=== PATIENT | male | born 1945 | race African-American/Black ===

== ENCOUNTER → 2016-06-28 | Outpatient (CLI) | payer MEDICARE, BC ==
[2016-06-28 07:40] LABS: Basophils # (A) 0.1 k/uL (0-0.2); Basophils % (A) 1 %; CH 28.6; CHCM 33.6; Eosinophils # (A) 0.3 k/uL (0-0.7); Eosinophils % (A) 4 %; HCT 43.4 % (39.0-53.0); HDW 2.86; HGB 14.4 gm/dL (13.0-17.5); Luc # (Auto) 0.18; Luc % (Auto) 2; Lymphocytes # (A) 1.8 k/uL (1.0-4.8); Lymphocytes % (A) 22 %; MCH 28.3 pg (25.0-35.0); MCHC 33.1 g/dL (31.0-37.0); MCV 85.4 fL (80.0-100.0); Mean Platelet Volume 9.5; Monocytes # (A) 0.6 k/uL (0-1.0); Monocytes % (A) 7 %; Neutrophils # (A) 5.5 k/uL (1.3-7.7); Neutrophils % (A) 65 %; RBC 5.08 m/uL (4.30-5.90); RDW 15.1 % (11.5-15.5); WBC 8.4 k/uL (3.8-10.6); WBC (Perox) 8.72
[2016-06-28 10:53] LABS: Calcium 9.7 mg/dL (8.4-10.2); Magnesium 1.5 mg/dL (1.6-2.3); Potassium 4.1 mmol/L (3.5-5.1); Uric Acid 5.5 mg/dL (3.5-8.5)
[2016-06-28 11:03] LABS: % Iron Saturation 26.2 % (20-50)
== END | disposition home or self-care (01) ==
LOC: LABWHC1 07:10
PROVIDERS: ATTEND Nurse Practitioner Family
DX: N18.3 Chronic kidney disease, stage 3 (moderate) (principal); E11.22 Type 2 diabetes mellitus with diabetic chronic kidney disease; E83.10 Disorder of iron metabolism, unspecified; E21.3 Hyperparathyroidism, unspecified; E50.9 Vitamin A deficiency, unspecified; M10.9 Gout, unspecified; E83.42 Hypomagnesemia
CPT/HCPCS: 36415; 80048; 82043; 82306; 82728; 83540; 83550; 83735; 83970; 84100; 84550; 85025

== ENCOUNTER → 2016-09-27 | Outpatient (CLI) | payer MEDICARE, BC ==
--- NOTE | 2016-09-27 07:43 | XR ---
EXAMINATION TYPE: XR chest 2V DATE OF EXAM: 09/27/2016 7:12 AM HISTORY: I11.9 hypertensive heart disease. REFERENCE: Previous study dated 01/19/2016. FINDINGS: Lungs are clear. Pleural spaces are clear. The heart is not enlarged. IMPRESSION: NO ACUTE INTRATHORACIC ABNORMALITY.
[2016-09-27 08:05] LABS: CHCM 32.8; HCT 46.8 % (39.0-53.0); HDW 2.91; HGB 15.3 gm/dL (13.0-17.5); MCH 27.9 pg (25.0-35.0); MCHC 32.6 g/dL (31.0-37.0); MCV 85.6 fL (80.0-100.0); Mean Platelet Volume 8.8; RBC 5.47 m/uL (4.30-5.90); RDW 15.5 % (11.5-15.5); WBC 8.6 k/uL (3.8-10.6)
[2016-09-27 08:24] LABS: Calcium 10.3 mg/dL (8.4-10.2); Potassium 4.5 mmol/L (3.5-5.1); Total Bilirubin 0.8 mg/dL (0.2-1.3); Total Protein 7.7 g/dL (6.3-8.2)
== END | disposition home or self-care (01) ==
LOC: LABWHC1 06:53
PROVIDERS: ATTEND Internal Medicine Endocrinology, Diabetes & Metabolism
DX: I11.9 Hypertensive heart disease without heart failure (principal); E11.65 Type 2 diabetes mellitus with hyperglycemia
CPT/HCPCS: 36415; 71020; 80053; 80061; 82043; 83036; 84443; 85027

== ENCOUNTER → 2017-01-22 | Outpatient (CLI) | payer MEDICARE, BC ==
[2017-01-22 08:08] LABS: Anisocytosis Slight; Basophils % (A) 1 %; CH 28.5; CHCM 33.5; Calcium 9.7 mg/dL (8.4-10.2); Eosinophils # (A) 0.4 k/uL (0-0.7); Eosinophils % (A) 4 %; HCT 43.2 % (39.0-53.0); HDW 2.93; HGB 14.3 gm/dL (13.0-17.5); Luc # (Auto) 0.19; Luc % (Auto) 2; Lymphocytes # (A) 1.8 k/uL (1.0-4.8); Lymphocytes % (A) 21 %; MCH 28.4 pg (25.0-35.0); MCHC 33.2 g/dL (31.0-37.0); MCV 85.5 fL (80.0-100.0); Magnesium 1.7 mg/dL (1.6-2.3); Mean Platelet Volume 8.9; Monocytes # (A) 0.6 k/uL (0-1.0); Monocytes % (A) 7 %; Neutrophils # (A) 5.8 k/uL (1.3-7.7); Neutrophils % (A) 66 %; Phosphorous 3.8 mg/dL (2.5-4.5); Potassium 4.3 mmol/L (3.5-5.1); RBC 5.05 m/uL (4.30-5.90); Uric Acid 5.2 mg/dL (3.5-8.5); WBC 8.8 k/uL (3.8-10.6); WBC (Perox) 8.73
[2017-01-22 17:08] LABS: Iron Saturation 33.46 (15.00-50.00)
[2017-01-22 18:25] LABS: Urine Creatinine 326.8 mg/dL
== END ==
LOC: LABWHC1 07:17
PROVIDERS: ATTEND Nurse Practitioner Family
DX: E11.22 Type 2 diabetes mellitus with diabetic chronic kidney disease (principal); N18.3 Chronic kidney disease, stage 3 (moderate); M10.9 Gout, unspecified; E83.10 Disorder of iron metabolism, unspecified; E83.42 Hypomagnesemia; E21.3 Hyperparathyroidism, unspecified; E55.9 Vitamin D deficiency, unspecified
CPT/HCPCS: 36415; 80048; 82043; 82306; 82570; 82728; 83540; 83550; 83735; 83970; 84100; 84550; 85025

== ENCOUNTER → 2017-06-09 | Outpatient (CLI) | payer MEDICARE, BC ==
[2017-06-09 09:40] LABS: Appearance,Urine Clear (Clear); Bilirubin,Urine Negative (Negative); Blood,Urine Negative (Negative); Color,Urine Yellow; Glucose,Urine (UA) Negative (Negative); Ketones,Urine Negative (Negative); Leukocyte Esterase,Urine Negative (Negative); Nitrite,Urine Negative (Negative); PH, Urine 5.5 (5.0-8.0); Protein,Urine Trace (Negative); Specific Gravity,Urine 1.014 (1.001-1.035); Urobilinogen,Urine <2.0 mg/dL (<2.0)
[2017-06-09 09:56] LABS: Magnesium 1.8 mg/dL (1.6-2.3); Phosphorus 4.2 mg/dL (2.5-4.5); Potassium 4.2 mmol/L (3.5-5.1); Uric Acid 5.3 mg/dL (3.5-8.5)
[2017-06-09 10:00] LABS: Basophils # (A) 0.1 k/uL (0-0.2); Basophils % (A) 1 %; Eosinophils # (A) 0.3 k/uL (0-0.7); Eosinophils % (A) 4 %; HCT 46.1 % (39.0-53.0); HGB 14.8 gm/dL (13.0-17.5); Lymphocytes % (A) 25 %; MCH 27.2 pg (25.0-35.0); MCHC 32.1 g/dL (31.0-37.0); MCV 84.7 fL (80.0-100.0); Mean Platelet Volume 8.6; Monocytes # (A) 0.6 k/uL (0-1.0); Monocytes % (A) 7 %; Neutrophils # (A) 4.9 k/uL (1.3-7.7); Neutrophils % (A) 61 %; Platelet Count 174 k/uL (150-450); RBC 5.44 m/uL (4.30-5.90); RDW 15.3 % (11.5-15.5)
[2017-06-09 16:59] LABS: Iron Saturation 26.87 (15.00-50.00)
[2017-06-09 17:08] LABS: Vitamin D 25 Hydroxy 40.7 ng/mL (30.0-100.0)
[2017-06-09 18:00] LABS: Parathyroid Hormone Intact 98.4 pg/mL (14.0-72.0)
== END | disposition home or self-care (01) ==
LOC: LABWHC1 09:06
PROVIDERS: ATTEND Internal Medicine Nephrology
DX: E11.22 Type 2 diabetes mellitus with diabetic chronic kidney disease (principal); N18.3 Chronic kidney disease, stage 3 (moderate); E21.3 Hyperparathyroidism, unspecified; D64.9 Anemia, unspecified; E55.9 Vitamin D deficiency, unspecified; M10.9 Gout, unspecified; N39.0 Urinary tract infection, site not specified
CPT/HCPCS: 36415; 80048; 80061; 81003; 82306; 82728; 83540; 83550; 83735; 83970; 84100; 84550; 85025

== ENCOUNTER → 2017-10-29 | Outpatient (CLI) | payer MEDICARE, BC ==
[2017-10-29 08:47] LABS: Appearance,Urine Clear (Clear); Basophils % (A) 1 %; Bilirubin,Urine Negative (Negative); Blood,Urine Negative (Negative); Color,Urine Yellow; Eosinophils # (A) 0.3 k/uL (0-0.7); Eosinophils % (A) 4 %; Glucose,Urine (UA) Negative (Negative); HCT 43.5 % (39.0-53.0); HGB 14.2 gm/dL (13.0-17.5); Ketones,Urine Negative (Negative); Leukocyte Esterase,Urine Negative (Negative); Lymphocytes # (A) 1.7 k/uL (1.0-4.8); Lymphocytes % (A) 23 %; MCH 27.4 pg (25.0-35.0); MCHC 32.7 g/dL (31.0-37.0); Mean Platelet Volume 8.9; Monocytes # (A) 0.6 k/uL (0-1.0); Monocytes % (A) 8 %; Neutrophils # (A) 4.6 k/uL (1.3-7.7); Neutrophils % (A) 62 %; Nitrite,Urine Negative (Negative); Platelet Count 157 k/uL (150-450); Protein,Urine Negative (Negative); RBC 5.18 m/uL (4.30-5.90); RDW 15.8 % (11.5-15.5); Specific Gravity,Urine 1.013 (1.001-1.035); Urobilinogen,Urine <2.0 mg/dL (<2.0); WBC 7.4 k/uL (3.8-10.6)
[2017-10-29 09:09] LABS: Albumin 4.4 g/dL (3.5-5.0); Calcium 9.7 mg/dL (8.4-10.2); Magnesium 1.7 mg/dL (1.6-2.3); Phosphorus 3.7 mg/dL (2.5-4.5); Potassium 4.3 mmol/L (3.5-5.1); Total Bilirubin 0.6 mg/dL (0.2-1.3); Total Protein 7.1 g/dL (6.3-8.2)
[2017-10-29 09:23] LABS: T4, Free (Free Thyroxine) 0.87 ng/dL (0.78-2.19)
[2017-10-29 16:17] LABS: Iron Saturation 28.37 (15.00-50.00)
[2017-10-29 16:26] LABS: Parathyroid Hormone Intact 95.4 pg/mL (14.0-72.0); Vitamin D 25 Hydroxy 40.2 ng/mL (30.0-100.0)
[2017-10-29 18:23] LABS: Hemoglobin A1C 6.6 % (4.0-6.0)
== END | disposition home or self-care (01) ==
LOC: LABWHC1 08:04
PROVIDERS: ATTEND Nurse Practitioner Family
DX: Z00.01 Encounter for general adult medical examination with abnormal findings (principal); I11.9 Hypertensive heart disease without heart failure; E11.9 Type 2 diabetes mellitus without complications; E78.2 Mixed hyperlipidemia; D64.9 Anemia, unspecified; M10.9 Gout, unspecified; N39.0 Urinary tract infection, site not specified; N18.3 Chronic kidney disease, stage 3 (moderate); N25.81 Secondary hyperparathyroidism of renal origin
CPT/HCPCS: 36415; 80053; 80061; 81003; 82043; 82306; 82570; 82728; 83036; 83540; 83550; 83735; 83970; 84100; 84439; 84443; 84550; 85025

== ENCOUNTER → 2017-12-05 | Outpatient (CLI) | payer MEDICARE, BC ==
--- NOTE | 2017-12-05 09:20 | US ---
EXAMINATION TYPE: US kidneys/renal and bladder DATE OF EXAM: 12/05/2017 COMPARISON: NONE CLINICAL HISTORY: N18.3 Chronic kidney disease, stage 3 (moderate). CKD stage 3 EXAM MEASUREMENTS: Right Kidney: 9.1 x 5.9 x 4.7 cm Left Kidney: 10.6 x 6.1 x 5.0 cm Right Kidney: cortical thinning, no hydronephrosis or masses seen Left Kidney: cortical thinning, small 1.1cm exophytic simple appearing cyst medial mid pole Bladder: not fully distended, appears wnl as seen Bilateral Jets seen: yes There is no evidence for hydronephrosis at this point in time. Some cortical thinning is present bila terally. No suspicious solid or cystic masses are identified. The urinary bladder is not greatly di stended. Bilateral ureteral jets are seen. IMPRESSION: No hydronephrosis is evident bilaterally.
== END | disposition home or self-care (01) ==
LOC: RADUSWWP 08:36
PROVIDERS: ATTEND Internal Medicine Nephrology
DX: N18.3 Chronic kidney disease, stage 3 (moderate) (principal)
CPT/HCPCS: 76770

== ENCOUNTER → 2018-04-10 | Outpatient (CLI) | payer MEDICARE, BC ==
[2018-04-10 08:56] LABS: Basophils % (A) 0 %; Eosinophils # (A) 0.3 k/uL (0-0.7); Eosinophils % (A) 5 %; HCT 42.2 % (39.0-53.0); HGB 14.1 gm/dL (13.0-17.5); Lymphocytes # (A) 1.4 k/uL (1.0-4.8); Lymphocytes % (A) 20 %; MCH 28.1 pg (25.0-35.0); MCHC 33.3 g/dL (31.0-37.0); MCV 84.4 fL (80.0-100.0); Monocytes # (A) 0.5 k/uL (0-1.0); Monocytes % (A) 6 %; Neutrophils # (A) 4.8 k/uL (1.3-7.7); Neutrophils % (A) 67 %; Platelet Count 169 k/uL (150-450); RDW 15.7 % (11.5-15.5); WBC 7.1 k/uL (3.8-10.6)
[2018-04-10 08:59] LABS: Appearance,Urine Clear (Clear); Bilirubin,Urine Negative (Negative); Blood,Urine Negative (Negative); Color,Urine Yellow; Glucose,Urine (UA) Negative (Negative); Ketones,Urine Negative (Negative); Leukocyte Esterase,Urine Negative (Negative); Nitrite,Urine Negative (Negative); PH, Urine 5.5 (5.0-8.0); Protein,Urine Negative (Negative); Specific Gravity,Urine 1.012 (1.001-1.035); Urobilinogen,Urine <2.0 mg/dL (<2.0)
[2018-04-10 17:01] LABS: Anion Gap 8.6 mmol/L (4.00-12.00); Calcium 9.3 mg/dL (8.7-10.3); Carbon Dioxide 23.4 mmol/L (21.6-31.8); Potassium 4.3 mmol/L (3.5-5.5); Uric Acid 5.5 mg/dL (3.7-8.7)
[2018-04-10 18:50] LABS: Iron Saturation 21.99 (15.00-50.00)
== END ==
LOC: LABWHC1 08:13
PROVIDERS: ATTEND Nurse Practitioner Family
DX: N39.0 Urinary tract infection, site not specified (principal); M10.9 Gout, unspecified; D63.1 Anemia in chronic kidney disease; N18.3 Chronic kidney disease, stage 3 (moderate)
CPT/HCPCS: 36415; 80048; 81003; 82728; 83540; 83550; 83735; 84100; 84550; 85025

== ENCOUNTER → 2018-05-22 | Outpatient (CLI) | payer MEDICARE ==
[2018-05-22 18:24] LABS: Anion Gap 7.6 mmol/L (4.00-12.00); Calcium 9.1 mg/dL (8.7-10.3); Carbon Dioxide 27.4 mmol/L (21.6-31.8); Potassium 4.4 mmol/L (3.5-5.5)
== END | disposition home or self-care (01) ==
LOC: LABWHC1 09:52
PROVIDERS: ATTEND Internal Medicine Nephrology
DX: N18.3 Chronic kidney disease, stage 3 (moderate) (principal)
CPT/HCPCS: 36415; 80048

== ENCOUNTER → 2018-06-26 | Outpatient (CLI) | payer MEDICARE ==
[2018-06-26 13:46] LABS: Appearance,Urine Clear (Clear); Basophils % (A) 1 %; Bilirubin,Urine Negative (Negative); Blood,Urine Negative (Negative); Color,Urine Yellow; Eosinophils # (A) 0.3 k/uL (0-0.7); Eosinophils % (A) 5 %; Glucose,Urine (UA) Negative (Negative); HCT 42.5 % (39.0-53.0); HGB 13.7 gm/dL (13.0-17.5); Ketones,Urine Negative (Negative); Leukocyte Esterase,Urine Negative (Negative); Lymphocytes # (A) 1.5 k/uL (1.0-4.8); Lymphocytes % (A) 21 %; MCH 27.7 pg (25.0-35.0); MCHC 32.3 g/dL (31.0-37.0); MCV 85.7 fL (80.0-100.0); Mean Platelet Volume 8.6; Monocytes # (A) 0.5 k/uL (0-1.0); Monocytes % (A) 7 %; Neutrophils # (A) 4.6 k/uL (1.3-7.7); Neutrophils % (A) 66 %; Nitrite,Urine Negative (Negative); PH, Urine 5.5 (5.0-8.0); Platelet Count 167 k/uL (150-450); Protein,Urine Negative (Negative); RBC 4.96 m/uL (4.30-5.90); RDW 15.9 % (11.5-15.5); Specific Gravity,Urine 1.012 (1.001-1.035); Urobilinogen,Urine <2.0 mg/dL (<2.0); WBC 7.1 k/uL (3.8-10.6)
[2018-06-26 19:27] LABS: Iron Saturation 22.3 (15.00-50.00)
[2018-06-26 19:32] LABS: Albumin 4.5 g/dL (3.80-4.90); Anion Gap 4.8 mmol/L (4.00-12.00); Calcium 9.4 mg/dL (8.7-10.3); Carbon Dioxide 27.2 mmol/L (21.6-31.8); Magnesium 1.9 mg/dL (1.5-2.4); Phosphorus 3.7 mg/dL (2.4-5.1); Uric Acid 4.5 mg/dL (3.7-8.7)
[2018-06-26 19:35] LABS: Vitamin D 25 Hydroxy 48.4 ng/mL (30.0-100.0)
[2018-06-26 20:03] LABS: Parathyroid Hormone Intact 123.5 pg/mL (14.0-72.0)
[2018-06-26 20:30] LABS: Creatinine,Urine Random 149.7 mg/dL
[2018-06-26 21:06] LABS: Total Protein,Urine Random 11.6 mg/dL (0.0-13.5)
== END | disposition home or self-care (01) ==
LOC: LABWHC1 12:32
PROVIDERS: ATTEND Internal Medicine Nephrology
DX: N39.0 Urinary tract infection, site not specified (principal); M10.9 Gout, unspecified; N25.81 Secondary hyperparathyroidism of renal origin; N18.3 Chronic kidney disease, stage 3 (moderate); D63.1 Anemia in chronic kidney disease; R80.9 Proteinuria, unspecified
CPT/HCPCS: 36415; 80048; 81003; 82040; 82306; 82570; 82728; 83540; 83550; 83735; 83970; 84100; 84156; 84550; 85025

== ENCOUNTER → 2018-10-27 | Outpatient (CLI) | payer MEDICARE ==
[2018-10-27 09:27] LABS: Basophils % (A) 1 %; Eosinophils # (A) 0.5 k/uL (0-0.7); Eosinophils % (A) 6 %; HCT 44.2 % (39.0-53.0); HGB 14.3 gm/dL (13.0-17.5); Lymphocytes # (A) 1.4 k/uL (1.0-4.8); Lymphocytes % (A) 16 %; MCH 26.9 pg (25.0-35.0); MCHC 32.4 g/dL (31.0-37.0); MCV 83.2 fL (80.0-100.0); Mean Platelet Volume 9.4; Monocytes # (A) 0.6 k/uL (0-1.0); Monocytes % (A) 7 %; Neutrophils % (A) 69 %; Platelet Count 190 k/uL (150-450); RBC 5.31 m/uL (4.30-5.90); RDW 15.9 % (11.5-15.5); WBC 8.6 k/uL (3.8-10.6)
[2018-10-27 09:32] LABS: Appearance,Urine Clear (Clear); Bilirubin,Urine Negative (Negative); Blood,Urine Negative (Negative); Color,Urine Yellow; Glucose,Urine (UA) Negative (Negative); Ketones,Urine Negative (Negative); Leukocyte Esterase,Urine Negative (Negative); Nitrite,Urine Negative (Negative); PH, Urine 5.5 (5.0-8.0); Protein,Urine Negative (Negative); Specific Gravity,Urine 1.013 (1.001-1.035); Urobilinogen,Urine <2.0 mg/dL (<2.0)
[2018-10-27 16:31] LABS: Iron Saturation 27.31 (15.00-50.00)
[2018-10-27 16:39] LABS: Vitamin D 25 Hydroxy 48.9 ng/mL (30.0-100.0)
[2018-10-27 17:22] LABS: African American GFR (CKD) 27.5 (60.0-200.0); Albumin 4.3 g/dL (3.80-4.90); Albumin/Globulin Ratio 1.65 (1.60-3.17); Anion Gap 9.2 mmol/L (4.00-12.00); BUN/Creat Ratio 13.08 Ratio (12.00-20.00); Calcium 9.4 mg/dL (8.7-10.3); Carbon Dioxide 21.8 mmol/L (21.6-31.8); Globulin 2.6 g/dL (1.6-3.3); LDL Cholesterol,Calculated 79.6 mg/dL (0.0-131.0); Potassium 4.5 mmol/L (3.5-5.5); Total Bilirubin 0.5 mg/dL (0.3-1.2); Total Protein 6.9 g/dL (6.2-8.2); Uric Acid 4.4 mg/dL (3.7-8.7); VLDL Calculation 36.4 mg/dL (5.00-40.00)
[2018-10-27 18:42] LABS: Parathyroid Hormone Intact 107.2 pg/mL (14.0-72.0)
[2018-10-27 18:59] LABS: Total Protein,Urine Random 16.8 mg/dL (0.0-13.5)
== END | disposition home or self-care (01) ==
LOC: LABWHC1 08:28
PROVIDERS: ATTEND Internal Medicine
DX: N18.4 Chronic kidney disease, stage 4 (severe) (principal); N25.81 Secondary hyperparathyroidism of renal origin; M10.9 Gout, unspecified; N39.0 Urinary tract infection, site not specified; D63.1 Anemia in chronic kidney disease; R80.9 Proteinuria, unspecified; E11.65 Type 2 diabetes mellitus with hyperglycemia; N40.0 Benign prostatic hyperplasia without lower urinary tract symptoms; K21.0 Gastro-esophageal reflux disease with esophagitis
CPT/HCPCS: 36415; 80053; 80061; 81003; 82272; 82306; 82570; 82728; 83540; 83550; 83735; 83970; 84100; 84153; 84156; 84443; 84550; 85025

== ENCOUNTER → 2019-01-30 | Outpatient (CLI) | payer MEDICARE ==
[2019-01-30 10:39] LABS: Appearance,Urine Clear (Clear); Basophils # (A) 0.1 k/uL (0-0.2); Basophils % (A) 1 %; Bilirubin,Urine Negative (Negative); Blood,Urine Negative (Negative); Color,Urine Yellow; Eosinophils # (A) 0.4 k/uL (0-0.7); Eosinophils % (A) 5 %; Glucose,Urine (UA) Negative (Negative); HCT 42.3 % (39.0-53.0); HGB 13.8 gm/dL (13.0-17.5); Ketones,Urine Negative (Negative); Leukocyte Esterase,Urine Negative (Negative); Lymphocytes # (A) 1.2 k/uL (1.0-4.8); Lymphocytes % (A) 15 %; MCH 27.6 pg (25.0-35.0); MCHC 32.6 g/dL (31.0-37.0); MCV 84.7 fL (80.0-100.0); Mean Platelet Volume 8.7; Monocytes # (A) 0.5 k/uL (0-1.0); Monocytes % (A) 6 %; Neutrophils # (A) 5.7 k/uL (1.3-7.7); Neutrophils % (A) 72 %; Nitrite,Urine Negative (Negative); Platelet Count 148 k/uL (150-450); Protein,Urine Negative (Negative); RBC 4.99 m/uL (4.30-5.90); RDW 15.8 % (11.5-15.5); Specific Gravity,Urine 1.014 (1.001-1.035); Urobilinogen,Urine <2.0 mg/dL (<2.0)
[2019-01-30 17:32] LABS: Iron Saturation 40.77 (15.00-50.00)
[2019-01-30 17:41] LABS: African American GFR (CKD) 28.9 (60.0-200.0); Albumin 4.3 g/dL (3.80-4.90); Anion Gap 9.8 mmol/L (4.00-12.00); BUN/Creat Ratio 16.8 Ratio (12.00-20.00); Calcium 9.2 mg/dL (8.7-10.3); Carbon Dioxide 24.2 mmol/L (21.6-31.8); Phosphorus 3.7 mg/dL (2.4-5.1); Potassium 4.5 mmol/L (3.5-5.5); Uric Acid 5.6 mg/dL (3.7-8.7)
[2019-01-30 17:55] LABS: Ferritin 580.6 ng/mL (22.0-322.0)
[2019-01-30 18:40] LABS: Creatinine,Urine Random 131.8 mg/dL
[2019-01-30 18:47] LABS: Total Protein,Urine Random 12.1 mg/dL (0.0-13.5)
== END | disposition home or self-care (01) ==
LOC: LABWHC1 09:43
PROVIDERS: ATTEND Nurse Practitioner Family
DX: E55.9 Vitamin D deficiency, unspecified (principal); N25.81 Secondary hyperparathyroidism of renal origin; M10.9 Gout, unspecified; N39.0 Urinary tract infection, site not specified; D64.9 Anemia, unspecified; N18.4 Chronic kidney disease, stage 4 (severe)
CPT/HCPCS: 36415; 80048; 81003; 82040; 82306; 82570; 82728; 83540; 83550; 83735; 83970; 84100; 84156; 84550; 85025

== ENCOUNTER → 2019-03-22 | Outpatient (CLI) | payer MEDICARE ==
[2019-03-22 12:08] LABS: Basophils # (A) 0.1 k/uL (0-0.2); Basophils % (A) 1 %; Eosinophils # (A) 0.4 k/uL (0-0.7); Eosinophils % (A) 5 %; HCT 44.4 % (39.0-53.0); HGB 14.5 gm/dL (13.0-17.5); Lymphocytes # (A) 1.7 k/uL (1.0-4.8); Lymphocytes % (A) 21 %; MCH 28.1 pg (25.0-35.0); MCHC 32.7 g/dL (31.0-37.0); MCV 86.1 fL (80.0-100.0); Mean Platelet Volume 8.1; Monocytes # (A) 0.6 k/uL (0-1.0); Monocytes % (A) 7 %; Neutrophils # (A) 5.4 k/uL (1.3-7.7); Neutrophils % (A) 65 %; Platelet Count 180 k/uL (150-450); RBC 5.16 m/uL (4.30-5.90); RDW 14.5 % (11.5-15.5); WBC 8.3 k/uL (3.8-10.6)
[2019-03-22 12:16] LABS: Albumin 4.1 g/dL (3.5-5.0); Calcium 9.3 mg/dL (8.4-10.2); Potassium 4.4 mmol/L (3.5-5.1); Total Bilirubin 0.5 mg/dL (0.2-1.3); Total Protein 7.2 g/dL (6.3-8.2)
--- NOTE | 2019-03-22 14:04 | CT ---
EXAMINATION TYPE: CT abdomen pelvis wo con DATE OF EXAM: 03/22/2019 COMPARISON: None HISTORY: 73-year-old male LLQ abdominal pain CT DLP: 698.30 mGycm. Automated exposure control for dose reduction was used. TECHNIQUE: Contiguous axial scanning of the abdomen and pelvis without IV contrast. Coronal and sagit curt reconstructions performed. FINDINGS: Heart normal size without pericardial effusion. Tiny hiatal hernia. Lung bases clear without pleural effusion. Tiny 9 mm hypodensity inferior right liver lobe too small for accurate CT characterization, likely ti ny cyst. A 1.6 cm hypodensity within segment IVb left liver lobe adjacent to the gallbladder fossa al so represent a cyst. Otherwise, noncontrast appearance of the liver, gallbladder, adrenal glands, right kidney, spleen, an d pancreas appear within normal limits. 9 mm exophytic cortical hypodensity anterior left kidney too small for accurate CT characterization, probable cyst. Scattered mild to moderate atherosclerotic calcifications abdominal aorta and mild within the iliac a rteries. No dilated small bowel, free fluid, or free air. No mesenteric or retroperitoneal lymphadenopathy. Mild to moderate stool burden. Generalized colonic diverticulosis. Normal appendix. Small area of focal fat stranding just anterior to the lower descending colon within the left lower q uadrant, axial image 55 and sagittal image 92. No other pericolonic inflammatory change seen. Circumferential bladder wall thickening. Small right greater than left scrotal hydroceles. No other a bnormal fluid collection in the pelvis or pelvic lymphadenopathy. Bones: Mild degenerative changes of the hips and SI joints. Facet arthropathy lower lumbar spine. IMPRESSION: 1. Generalized colonic diverticulosis. Anterior to the lower descending colon, some mild focal fat s tranding is present. Differential considerations include very mild early inflammation relating to eit her acute diverticulitis or epiploic appendagitis. 2. Circumferential bladder wall thickening. Correlate to exclude cystitis..
== END | disposition home or self-care (01) ==
LOC: RADCTMAIN 11:34
PROVIDERS: ATTEND Internal Medicine
DX: K57.30 Diverticulosis of large intestine without perforation or abscess without bleeding (principal); N32.89 Other specified disorders of bladder; R10.32 Left lower quadrant pain; Z88.0 Allergy status to penicillin
CPT/HCPCS: 74176; 80053; 82150; 83690; 85025

== ENCOUNTER → 2019-04-09 | Outpatient (CLI) | payer MEDICARE ==
--- NOTE | 2019-04-09 16:52 | US ---
EXAMINATION TYPE: US kidneys/renal and bladder DATE OF EXAM: 04/09/2019 COMPARISON: CT 03/22/2019, US 12/05/2017 CLINICAL HISTORY: N13.98 Obstructive and reflux uropathy, unspecifi. Patient fell on back 2 weeks ag o and c/o decreased urinary stream, but has improved since 2 weeks ago; diabetic EXAM MEASUREMENTS: Right Kidney: 9.6 x 5.9 x 5.6 cm Left Kidney: 10.4 x 5.1 x 5.9 cm Post Void Residual Volume: 15.0 mL Right Kidney: No hydronephrosis or masses seen ; crescent shaped anechoic area adjacent to right late ral renal cortex suggests sonographic "sweat sign" for renal failure Left Kidney: mid lower cortical cyst seen = 1.2 x 0.9 x 1.0cm Bladder: abnormal wall thickening still present at 0.6cm Bilateral Jets seen: not seen after 3 minute observation Normal Post Void Residual: yes, as is less than 50.0ml. Prominent prostate is noted. There is no evidence for hydronephrosis at this point in time. No nephrolithiasis is seen. No suspi cious masses are identified. IMPRESSION: Persistent diffuse urinary bladder wall thickening. Prominent prostate gland is also seen and urinary bladder outlet obstruction is possible. Correlate with urinalysis.
== END ==
LOC: RADUSWWP 16:01
PROVIDERS: ATTEND Internal Medicine
DX: N32.89 Other specified disorders of bladder (principal)
CPT/HCPCS: 76770

== ENCOUNTER → 2019-08-13 | Outpatient (CLI) | payer MEDICARE ==
[2019-08-13 09:01] LABS: Appearance,Urine Clear (Clear); Bilirubin,Urine Negative (Negative); Blood,Urine Negative (Negative); Color,Urine Yellow; Glucose,Urine (UA) Negative (Negative); Ketones,Urine Negative (Negative); Leukocyte Esterase,Urine Negative (Negative); Nitrite,Urine Negative (Negative); Protein,Urine Negative (Negative); Specific Gravity,Urine 1.013 (1.001-1.035); Urobilinogen,Urine <2.0 mg/dL (<2.0)
[2019-08-13 09:15] LABS: Basophils # (A) 0.1 k/uL (0-0.2); Basophils % (A) 1 %; Eosinophils # (A) 0.3 k/uL (0-0.7); Eosinophils % (A) 4 %; HCT 44.2 % (39.0-53.0); HGB 14.2 gm/dL (13.0-17.5); Lymphocytes # (A) 1.8 k/uL (1.0-4.8); Lymphocytes % (A) 23 %; MCH 26.8 pg (25.0-35.0); MCV 83.8 fL (80.0-100.0); Mean Platelet Volume 9.2; Monocytes # (A) 0.6 k/uL (0-1.0); Monocytes % (A) 8 %; Neutrophils # (A) 4.6 k/uL (1.3-7.7); Neutrophils % (A) 61 %; Platelet Count 173 k/uL (150-450); RBC 5.28 m/uL (4.30-5.90); RDW 14.5 % (11.5-15.5); WBC 7.6 k/uL (3.8-10.6)
[2019-08-13 09:33] LABS: Protein/Creatinine Ratio,Urine 0.068
[2019-08-13 11:13] LABS: Erythrocyte Sedimentation Rate 6 mm/hr (0-15)
[2019-08-13 15:59] LABS: ALT 30 U/L (10-49); AST 20 U/L (14-35); Alkaline Phosphatase 78 U/L (41-126); C Reactive Protein <0.4 mg/dL (0.0-0.8); Calcium 8.8 mg/dL (8.7-10.3); Carbon Dioxide 24.4 mmol/L (21.6-31.8); Chloride 108 mmol/L (96-109); Chol/HDL Ratio 4.77; Cholesterol 148 mg/dL (0-200); Creatine Kinase 288 U/L (35-257); Globulin 2.1 g/dL (1.6-3.3); Glucose 117 mg/dL (70-110); LDL Cholesterol,Calculated 71.6 mg/dL (0.0-131.0); Magnesium 1.8 mg/dL (1.5-2.4); Non-African American GFR(CKD) 19.8 (60.0-200.0); Phosphorus 3.7 mg/dL (2.4-5.1); Potassium 4.2 mmol/L (3.5-5.5); Sodium 141 mmol/L (135-145); Total Bilirubin 0.6 mg/dL (0.3-1.2); Total Protein 6.3 g/dL (6.2-8.2); Uric Acid 8.3 mg/dL (3.7-8.7)
== END | disposition home or self-care (01) ==
LOC: LABWHC1 08:11
PROVIDERS: ATTEND Internal Medicine
DX: D64.9 Anemia, unspecified (principal); N18.4 Chronic kidney disease, stage 4 (severe); E78.5 Hyperlipidemia, unspecified; E03.9 Hypothyroidism, unspecified; E55.9 Vitamin D deficiency, unspecified; R80.9 Proteinuria, unspecified
CPT/HCPCS: 36415; 80053; 80061; 81003; 82550; 82570; 83735; 83970; 84100; 84156; 84443; 84550; 85025; 85652; 86140

== ENCOUNTER → 2020-03-31 | Outpatient (CLI) | payer MEDICARE ==
[2020-03-31 09:13] LABS: Appearance,Urine Clear (Clear); Bilirubin,Urine Negative (Negative); Blood,Urine Negative (Negative); Color,Urine Yellow; Glucose,Urine (UA) Negative (Negative); Ketones,Urine Negative (Negative); Leukocyte Esterase,Urine Negative (Negative); Nitrite,Urine Negative (Negative); PH, Urine 5.5 (5.0-8.0); Protein,Urine Trace (Negative); Specific Gravity,Urine 1.015 (1.001-1.035); Urobilinogen,Urine <2.0 mg/dL (<2.0)
[2020-03-31 09:16] LABS: Basophils # (A) 0.1 k/uL (0-0.2); Basophils % (A) 1 %; Eosinophils # (A) 0.4 k/uL (0-0.7); Eosinophils % (A) 6 %; HCT 41.1 % (39.0-53.0); HGB 13.7 gm/dL (13.0-17.5); Lymphocytes # (A) 1.6 k/uL (1.0-4.8); Lymphocytes % (A) 22 %; MCH 28.3 pg (25.0-35.0); MCHC 33.4 g/dL (31.0-37.0); MCV 84.7 fL (80.0-100.0); Mean Platelet Volume 9.5; Monocytes # (A) 0.5 k/uL (0-1.0); Monocytes % (A) 7 %; Neutrophils # (A) 4.4 k/uL (1.3-7.7); Neutrophils % (A) 62 %; Platelet Count 156 k/uL (150-450); RBC 4.85 m/uL (4.30-5.90); WBC 7.1 k/uL (3.8-10.6)
[2020-03-31 09:36] LABS: Creatinine,Urine Random 247.6 mg/dL; Protein/Creatinine Ratio,Urine 0.069
[2020-03-31 15:59] LABS: % Iron Saturation 29.08 (15.00-50.00); African American GFR (CKD) 30.1 (60.0-200.0); Anion Gap 6.5 mmol/L (4.00-12.00); BUN/Creat Ratio 10.83 Ratio (12.00-20.00); Calcium 8.9 mg/dL (8.7-10.3); Carbon Dioxide 26.5 mmol/L (21.6-31.8); Magnesium 1.7 mg/dL (1.5-2.4); Phosphorus 3.5 mg/dL (2.4-5.1); Potassium 4.5 mmol/L (3.5-5.5); Uric Acid 8.8 mg/dL (3.7-8.7)
== END | disposition home or self-care (01) ==
LOC: LABWHC1 08:26
PROVIDERS: ATTEND Nurse Practitioner Family
DX: N18.4 Chronic kidney disease, stage 4 (severe) (principal); N25.81 Secondary hyperparathyroidism of renal origin
CPT/HCPCS: 36415; 80048; 81003; 82040; 82306; 82570; 82728; 83540; 83550; 83735; 83970; 84100; 84156; 84550; 85025

== ENCOUNTER → 2020-09-20 | Outpatient (CLI) | payer MEDICARE ==
[2020-09-20 08:40] LABS: Basophils # (A) 0.1 k/uL (0-0.2); Basophils % (A) 1 %; Eosinophils # (A) 0.6 k/uL (0-0.7); Eosinophils % (A) 6 %; HCT 41.2 % (39.0-53.0); Lymphocytes # (A) 1.5 k/uL (1.0-4.8); Lymphocytes % (A) 15 %; MCH 28.2 pg (25.0-35.0); MCHC 34.1 g/dL (31.0-37.0); MCV 82.8 fL (80.0-100.0); Mean Platelet Volume 8.9; Monocytes # (A) 0.8 k/uL (0-1.0); Monocytes % (A) 8 %; Neutrophils # (A) 7.3 k/uL (1.3-7.7); Neutrophils % (A) 70 %; Platelet Count 179 k/uL (150-450); RBC 4.97 m/uL (4.30-5.90); RDW 14.1 % (11.5-15.5); WBC 10.5 k/uL (3.8-10.6)
[2020-09-20 10:57] LABS: Erythrocyte Sedimentation Rate 7 mm/hr (0-15)
[2020-09-20 11:47] LABS: African American GFR (CKD) 28.5 (60.0-200.0); Albumin 4.2 g/dL (3.80-4.90); Albumin/Globulin Ratio 1.91 (1.60-3.17); Anion Gap 7.7 mmol/L (4.00-12.00); BUN/Creat Ratio 16.4 Ratio (12.00-20.00); C Reactive Protein 0.5 mg/dL (0.0-0.8); Calcium 9.6 mg/dL (8.7-10.3); Carbon Dioxide 25.3 mmol/L (21.6-31.8); Globulin 2.2 g/dL (1.6-3.3); LDL Cholesterol,Calculated 80.4 mg/dL (0.0-131.0); Magnesium 1.8 mg/dL (1.5-2.4); Non-African American GFR(CKD) 24.6 (60.0-200.0); Phosphorus 4.1 mg/dL (2.4-5.1); Potassium 4.4 mmol/L (3.5-5.5); Total Bilirubin 0.8 mg/dL (0.3-1.2); Total Protein 6.4 g/dL (6.2-8.2); VLDL Calculation 27.6 mg/dL (5.00-40.00)
[2020-09-20 11:55] LABS: Prostate Specific Antigen 0.6 ng/mL (0.0-6.5)
[2020-09-20 22:58] LABS: Hemoglobin A1C 6.4 % (4.0-6.0)
== END | disposition home or self-care (01) ==
LOC: LABMAIN 07:50
PROVIDERS: ATTEND Internal Medicine Nephrology
DX: Z00.00 Encounter for general adult medical examination without abnormal findings (principal); E55.9 Vitamin D deficiency, unspecified; E11.65 Type 2 diabetes mellitus with hyperglycemia; E78.5 Hyperlipidemia, unspecified; E11.22 Type 2 diabetes mellitus with diabetic chronic kidney disease; N18.30 Chronic kidney disease, stage 3 unspecified; M10.9 Gout, unspecified; I12.9 Hypertensive chronic kidney disease with stage 1 through stage 4 chronic kidney disease, or unspecified chronic kidney disease; N40.0 Benign prostatic hyperplasia without lower urinary tract symptoms; E87.8 Other disorders of electrolyte and fluid balance, not elsewhere classified
CPT/HCPCS: 36415; 80053; 80061; 82550; 83036; 83735; 83970; 84100; 84153; 84443; 84550; 85025; 85652; 86140

== ENCOUNTER → 2021-01-14 | Outpatient (CLI) | payer MEDICARE ==
[2021-01-14 12:21] LABS: Appearance,Urine Clear (Clear); Bilirubin,Urine Negative (Negative); Blood,Urine Negative (Negative); Color,Urine Yellow; Glucose,Urine (UA) Negative (Negative); Ketones,Urine Negative (Negative); Leukocyte Esterase,Urine Negative (Negative); Nitrite,Urine Negative (Negative); PH, Urine 5.5 (5.0-8.0); Protein,Urine 1+ (Negative); Specific Gravity,Urine 1.018 (1.001-1.035); Urobilinogen,Urine <2.0 mg/dL (<2.0); WBC,Urine 1 /hpf (0-5)
[2021-01-14 12:39] LABS: Creatinine,Urine Random 256.9 mg/dL; Protein/Creatinine Ratio,Urine 0.144
[2021-01-14 19:41] LABS: Basophils # (A) 0.05 X 10*3/uL (0.00-0.10); Basophils % (A) 0.6 %; Eosinophils # (A) 0.38 X 10*3/uL (0.04-0.35); Eosinophils % (A) 4.9 %; HCT 42.4 % (39.6-50.0); HGB 13.9 g/dL (13.0-17.0); Lymphocytes # (A) 1.49 X 10*3/uL (0.90-5.00); Lymphocytes % (A) 19.1 %; MCH 27.6 pg (27.0-32.0); MCHC 32.8 g/dL (32.0-37.0); MCV 84.3 fL (80.0-97.0); Mean Platelet Volume 11.7 fL (9.5-12.2); Monocytes # (A) 0.64 X 10*3/uL (0.20-1.00); Monocytes % (A) 8.2 %; Neutrophils # (A) 5.17 X 10*3/uL (1.80-7.70); Neutrophils % (A) 66.4 %; Platelet Count 192 X 10*3/uL (140-440); RBC 5.03 X 10*6/uL (4.40-5.60); RDW 14.4 % (11.5-14.5); WBC 7.79 X 10*3/uL (4.50-10.00)
[2021-01-15 02:31] LABS: % Iron Saturation 27.44 (15.00-50.00); African American GFR (CKD) 29.9 (60.0-200.0); Albumin 4.3 g/dL (3.80-4.90); Anion Gap 12.1 mmol/L (4.00-12.00); BUN/Creat Ratio 13.75 Ratio (12.00-20.00); Calcium 9.8 mg/dL (8.7-10.3); Carbon Dioxide 20.9 mmol/L (21.6-31.8); Magnesium 1.6 mg/dL (1.5-2.4); Non-African American GFR(CKD) 25.8 (60.0-200.0); Phosphorus 4.1 mg/dL (2.4-5.1); Potassium 4.6 mmol/L (3.5-5.5); Uric Acid 8.1 mg/dL (3.7-8.7)
[2021-01-15 02:59] LABS: Ferritin 457.3 ng/mL (22.0-322.0)
== END | disposition home or self-care (01) ==
LOC: LABWHC1 10:07
PROVIDERS: ATTEND Internal Medicine Nephrology
DX: N25.81 Secondary hyperparathyroidism of renal origin (principal); E55.9 Vitamin D deficiency, unspecified; N18.4 Chronic kidney disease, stage 4 (severe); E79.0 Hyperuricemia without signs of inflammatory arthritis and tophaceous disease; D64.9 Anemia, unspecified
CPT/HCPCS: 36415; 80048; 81001; 82040; 82306; 82570; 82728; 83540; 83550; 83735; 83970; 84100; 84156; 84550; 85025

== ENCOUNTER 2021-04-09 06:32 | Day surgery (SDC) | payer MEDICARE ==
[2021-04-06 10:31] VITALS: BMI 28.8
[~2021-04-09 06:32] MED LIST: LACTATED RINGERS 1,000 ML IV SCH
--- NOTE | 2021-04-09 06:34 | P.GSHP ---
History of Present Illness H&P Date: 04/09/21 CHIEF COMPLAINT: GERD and colon screen HISTORY OF PRESENT ILLNESS: The patient is a 76-year-old male who presents with gastroesophageal reflux disease and need for colon screen. Upper and lower endoscopy were offered for further evaluation and management. PAST MEDICAL HISTORY: Please see list. PAST SURGICAL HISTORY: Please see list. MEDICATIONS: Please see list. ALLERGIES: Please see list. SOCIAL HISTORY: No illicit drug use FAMILY HISTORY: No reports of Crohn disease or ulcerative colitis. REVIEW OF ORGAN SYSTEMS: CONSTITUTIONAL: No reports of fevers or chills. GI: Denies any blood in stools or constipation. PHYSICAL EXAM: VITAL SIGNS: Stable GENERAL: Well-developed pleasant in no acute distress. HEENT: No scleral icterus. Extraocular movements grossly intact. Moist buccal mucosa. NECK: Supple without lymphadenopathy. CHEST: Unlabored respirations. Equal bilateral excursions. CARDIOVASCULAR: Regular rate and rhythm. Distal 2+ pulses. ABDOMEN: Soft, nondistended. MUSCULOSKELETAL: No clubbing, cyanosis, or edema. ASSESSMENT: 1. Gastroesophageal reflux disease 2. Colon screen. PLAN: 1. Recommend proceeding with an upper and lower endoscopy Past Medical History Past Medical History: Diabetes Mellitus, Hyperlipidemia, Hypertension, Osteoarthritis (OA) Additional Past Medical History / Comment(s): CHRONIC KIDNEY DISEASE, History of Any Multi-Drug Resistant Organisms: None Reported Additional Past Surgical History / Comment(s): COLONOSCOPY, EGD Past Anesthesia/Blood Transfusion Reactions: No Reported Reaction Smoking Status: Former smoker - Past Family History Mother Family Medical History: No Reported History Medications and Allergies Home Medications Medication Instructions Recorded Confirmed Type Allopurinol [Zyloprim] 100 mg PO DAILY 04/06/21 04/06/21 History Atorvastatin Calcium [Lipitor] 40 mg PO HS 04/06/21 04/06/21 History Eplerenone [Inspra] 25 mg PO DAILY 04/06/21 04/06/21 History Ergocalciferol [Vitamin D2 (1250 50,000 unit PO Q30D 04/06/21 04/06/21 History Mcg = 31816 Iu)] Ferrous Sulfate [Feosol] 325 mg PO DAILY 04/06/21 04/06/21 History Insulin Glargine,Hum.rec.anlog 70 unit SQ HS 04/06/21 04/06/21 History [Lantus Solostar Pen] Insulin Lispro [humaLOG Kwikpen] 0 unit SQ QID 04/06/21 04/06/21 History Pantoprazole [Protonix] 40 mg PO DAILY 04/06/21 04/06/21 History Valsartan/Hydrochlorothiazide 1 each PO DAILY 04/06/21 04/06/21 History [Valsartan-Hctz 80-12.5 mg Tab] amLODIPine [Norvasc] 5 mg PO HS 04/06/21 04/06/21 History atenoloL [Tenormin] 25 mg PO DAILY 04/06/21 04/06/21 History cloNIDine HCL [Catapres] 0.2 mg PO BID 04/06/21 04/06/21 History hydrALAZINE HCL [Apresoline] 25 mg PO BID 04/06/21 04/06/21 History Allergies Allergy/AdvReac Type Severity Reaction Status Date / Time nickel Allergy Rash/Hives Verified 04/06/21 09:51 piperacillin [From Zosyn] Allergy Rash/Hives Verified 04/06/21 09:51 tazobactam [From Zosyn] Allergy Rash/Hives Verified 04/06/21 09:51
[2021-04-09 07:29] VITALS: TEMP 97
[2021-04-09 07:29] LABS: Glucose,Whole Blood 109 mg/dL (75-99)
[2021-04-09] MEDS ORDERED: ePHEDrine 50 MG/ML 1 ML AMP ONE (07:55)
[2021-04-09] MEDS ORDERED: LIDOCAINE 1% INJ 10MG/ML (20 ML MDV) ONE (07:55)
[2021-04-09] MEDS ORDERED: PROPOFOL 10 MG/ML 20 ML VIAL IV ONE (07:55)
--- NOTE | 2021-04-09 08:10 | P.PCN ---
Date of Procedure: 04/09/21 Description of Procedure: PREOPERATIVE DIAGNOSIS: Gastroesophageal reflux disease. POSTOPERATIVE DIAGNOSIS: Duodenitis Gastritis. Gastroesophageal reflux disease. Diaphragmatic hiatal hernia OPERATION: Esophagogastroduodenoscopy with cold forceps biopsies along antrum and duodenum SURGEON: Esperanza Taylor MD ANESTHESIA: MAC. INDICATIONS: The patient is a 76-year-old male who presents with a history of reflux disease. Benefits and risks of the procedure were described. Informed consent was obtai colin. DESCRIPTION: The patient was brought into the endoscopy suite and laid in the left lateral decubitus position. An Olympus gastroscope was passed along the posterior oropharynx down to the distal esophagus where the squamocolumnar junction was encountered at 39 cm from the incisors. The stomach was entered and no bile reflux was found. Additional findings are listed below. Biopsies with cold forceps were obtained of the antrum. The first through third portion of the duodenum was examined and remarkable for duodenitis. Retroflexion of the scope confirmed Hill grade 3 lower esophageal valve. The squamocolumnar junction demonstrated LA grade B erosive esophagitis. The stomach was desufflated. The patient tolerated the procedure well. FINDINGS: Squamocolumnar junction 39 cm from the incisors. Diaphragmatic hiatus at 40 cm. Hiatal hernia, 1 cm Hill grade 3 lower esophageal valve. LA grade B erosive esophagitis. Active duodenitis cold forceps biopsies obtained Chronic gastritis with melanotic pigmentation of the antrum, biopsies obtained RECOMMENDATIONS: Upper endoscopy as needed.
--- NOTE | 2021-04-09 08:48 | P.PCN ---
Date of Procedure: 04/09/21 Description of Procedure: PREOPERATIVE DIAGNOSIS: Personal history of colon polyps Colonoscopy screening POSTOPERATIVE DIAGNOSIS: Personal history of colon polyps Colonoscopy screening Tubular adenoma hepatic flexure Tubular adenoma transverse colon Tubular adenoma ascending colon Sigmoid diverticulosis, severe Pandiverticulosis OPERATION: Colonoscopy to the ileocecal valve and appendiceal orifice, cecum Colonoscopy with hot snare polypectomy SURGEON: Esperanza Taylor MD. ANESTHESIA: MAC. INDICATIONS: The patient is a 76-year-old male who presents personal history of colon polyps. Last colonoscopy over 5 years. Benefits and risks were described and informed consent was obtained. DESCRIPTION OF PROCEDURE: The patient had undergone Sutab prep. The patient had been brought into the operating room and laid in the left lateral decubitus position. After adequate intravenous sedation, the rectum was examined with 2% lidocaine jelly. The prostate was unremarkable. No external hemorrhoids were encountered. The rectal tone was within normal limits. No lesions were palpated in the rectal vault. An Olympus colonoscope was advanced until the cecum, ileocecal valve and appendiceal orifice were clearly viewed. The prep was fair. Sigmoid diverticulosis was encountered with pandiverticulosis. Colonic polyps were found and removed. Stricture along the sigmoid colon was found between 25-30 cm from the anal verge with retained sigmoid colon polyp. 2No evidence of focal colitis was found. Retroflexion of the scope demonstrated grade 2 internal hemorrhoids without active bleeding or inflammation. The colon was desufflated. The patient had tolerated the procedure well. Withdrawal time was over 6 minutes. FINDINGS: Aronchick preparation quality scale 1 (1-5) Internal hemorrhoids, grade 2 No external hemorrhoids No arteriovenous malformations. Sigmoid diverticulosis, severe with stricture at 25-30 cm from the anal verge. Retained sigmoid colon polyp Removal of 4 polyps: - Snare polypectomy at ascending colon, 11 mm tubulovillous adenoma polyp. - Snare polypectomy at hepatic flexure, 8 mm tubulovillous adenoma polyp. - Snare polypectomy at mid transverse colon, 10 mm tubulovillous adenoma polyp. No focal colitis. RECOMMENDATIONS: Repeat colonoscopy 1 year, 2021 Plan - Discharge Summary Discharge Rx Participant: No New Discharge Prescriptions: Continue atenoloL [Tenormin] 25 mg PO DAILY Ergocalciferol [Vitamin D2 (1250 Mcg = 16706 Iu)] 50,000 unit PO Q30D Eplerenone [Inspra] 25 mg PO DAILY Atorvastatin Calcium [Lipitor] 40 mg PO HS Allopurinol [Zyloprim] 100 mg PO DAILY Insulin Glargine,Hum.rec.anlog [Lantus Solostar Pen] 70 unit SQ HS hydrALAZINE HCL [Apresoline] 25 mg PO BID cloNIDine HCL [Catapres] 0.2 mg PO BID amLODIPine [Norvasc] 5 mg PO HS Valsartan/Hydrochlorothiazide [Valsartan-Hctz 80-12.5 mg Tab] 1 each PO DAILY Pantoprazole [Protonix] 40 mg PO DAILY Ferrous Sulfate [Iron (65 MG Elemental)] 325 mg PO DAILY Insulin Lispro [humaLOG Kwikpen] 0 unit SQ QID Discharge Medication List Allopurinol [Zyloprim] 100 mg PO DAILY 04/06/21 [History] Atorvastatin Calcium [Lipitor] 40 mg PO HS 04/06/21 [History] Eplerenone [Inspra] 25 mg PO DAILY 04/06/21 [History] Ergocalciferol [Vitamin D2 (1250 Mcg = 81758 Iu)] 50,000 unit PO Q30D 04/06/21 [History] Ferrous Sulfate [Iron (65 MG Elemental)] 325 mg PO DAILY 04/06/21 [History] Insulin Glargine,Hum.rec.anlog [Lantus Solostar Pen] 70 unit SQ HS 04/06/21 [History] Insulin Lispro [humaLOG Kwikpen] 0 unit SQ QID 04/06/21 [History] Pantoprazole [Protonix] 40 mg PO DAILY 04/06/21 [History] Valsartan/Hydrochlorothiazide [Valsartan-Hctz 80-12.5 mg Tab] 1 each PO DAILY 04/06/21 [History] amLODIPine [Norvasc] 5 mg PO HS 04/06/21 [History] atenoloL [Tenormin] 25 mg PO DAILY 04/06/21 [History] cloNIDine HCL [Catapres] 0.2 mg PO BID 04/06/21 [History] hydrALAZINE HCL [Apresoline] 25 mg PO BID 04/06/21 [History] Follow up Appointment(s)/Referral(s): Esperanza Taylor MD [STAFF PHYSICIAN] - As Needed Patient Instructions/Handouts: Colorectal Polyps (DC), Gastritis (DC), Diet for Stomach Ulcers and Gastritis (ED), Duodenitis (ED), Diverticulosis Diet (GEN), Diverticulosis (DC) Activity/Diet/Wound Care/Special Instructions: Repeat colonoscopy 1 year, 2021 Discharge Disposition: HOME SELF-CARE
[2021-04-09 09:33] VITALS: PULSE 70
[2021-04-09] MEDS ORDERED: ENALAPRILAT 1.25 MG/ML 1 ML VIAL IVP ONE (09:35)
[2021-04-09] MEDS ORDERED: ENALAPRILAT 1.25 MG/ML 1 ML VIAL ONE (09:35)
[2021-04-09 09:54] VITALS: BP 143/80; RESP 14
== END 2021-04-09 09:54 | disposition home or self-care (01) ==
LOC: ORWHC2ENDO 06:32
PROVIDERS: ATTEND Surgery Plastic and Reconstructive Surgery
DX: Z12.11 Encounter for screening for malignant neoplasm of colon (principal); D12.2 Benign neoplasm of ascending colon; K57.30 Diverticulosis of large intestine without perforation or abscess without bleeding; K21.9 Gastro-esophageal reflux disease without esophagitis; Z86.010 Personal history of colon polyps
CPT/HCPCS: 45385; 43239; J2001; J2704; 88305; 88313

== ENCOUNTER → 2021-04-16 | Outpatient (CLI) | payer MEDICARE ==
[2021-04-16 15:52] LABS: African American GFR (CKD) 24.2 (60.0-200.0); Anion Gap 14.2 mmol/L (10.00-18.00); BUN/Creat Ratio 17.64 Ratio (12.00-20.00); Blood Urea Nitrogen 50.1 mg/dL (9.0-27.0); Calcium 9.6 mg/dL (8.7-10.3); Carbon Dioxide 20.9 mmol/L (20.0-27.5); Magnesium 2.1 mg/dL (1.5-2.4); Non-African American GFR(CKD) 20.9 (60.0-200.0); Potassium 4.6 mmol/L (3.5-5.5)
== END | disposition home or self-care (01) ==
LOC: LABWHC1 07:30
PROVIDERS: ATTEND Internal Medicine
DX: I12.9 Hypertensive chronic kidney disease with stage 1 through stage 4 chronic kidney disease, or unspecified chronic kidney disease (principal); N18.4 Chronic kidney disease, stage 4 (severe)
CPT/HCPCS: 36415; 80048; 83735

== ENCOUNTER → 2021-06-25 | Outpatient (CLI) | payer MEDICARE ==
[2021-06-25 10:38] LABS: Appearance,Urine Clear (Clear); Bilirubin,Urine Negative (Negative); Blood,Urine Negative (Negative); Color,Urine Yellow; Glucose,Urine (UA) Negative (Negative); Ketones,Urine Negative (Negative); Leukocyte Esterase,Urine Negative (Negative); Nitrite,Urine Negative (Negative); PH, Urine 6.5 (5.0-8.0); Protein,Urine Trace (Negative); Specific Gravity,Urine 1.014 (1.001-1.035); Urobilinogen,Urine <2.0 mg/dL (<2.0)
[2021-06-25 10:46] LABS: Creatinine,Urine Random 169.7 mg/dL; Protein/Creatinine Ratio,Urine 0.224
[2021-06-25 15:32] LABS: % Iron Saturation 29.91 (15.00-50.00); African American GFR (CKD) 27.2 (60.0-200.0); Anion Gap 11.4 mmol/L (10.00-18.00); BUN/Creat Ratio 10.89 Ratio (12.00-20.00); Blood Urea Nitrogen 28.1 mg/dL (9.0-27.0); Calcium 9.8 mg/dL (8.7-10.3); Magnesium 1.9 mg/dL (1.5-2.4); Non-African American GFR(CKD) 23.5 (60.0-200.0); Phosphorus 4.2 mg/dL (2.4-5.1); Potassium 4.6 mmol/L (3.5-5.5)
[2021-06-25 15:39] LABS: Basophils # (A) 0.05 X 10*3/uL (0.00-0.10); Basophils % (A) 0.7 %; Eosinophils # (A) 0.32 X 10*3/uL (0.04-0.35); Eosinophils % (A) 4.3 %; HCT 43.9 % (39.6-50.0); HGB 13.9 g/dL (13.0-17.0); Immature Grans, Automated 0.8 %; Lymphocytes # (A) 1.65 X 10*3/uL (0.90-5.00); Lymphocytes % (A) 22.2 %; MCH 27.1 pg (27.0-32.0); MCHC 31.7 g/dL (32.0-37.0); MCV 85.7 fL (80.0-97.0); Mean Platelet Volume 11.8 fL (9.5-12.2); Monocytes # (A) 0.75 X 10*3/uL (0.20-1.00); Monocytes % (A) 10.1 %; NRBC Per 100 WBC 0 /100 WBCS (0.0-0.0); Neutrophils # (A) 4.59 X 10*3/uL (1.80-7.70); Neutrophils % (A) 61.9 %; Platelet Count 200 X 10*3/uL (140-440); RBC 5.12 X 10*6/uL (4.40-5.60); RDW 14.9 % (11.5-14.5); WBC 7.42 X 10*3/uL (4.50-10.00)
[2021-06-25 16:06] LABS: Albumin 4.3 g/dL (3.8-4.9)
== END | disposition home or self-care (01) ==
LOC: LABWHC1 09:57
PROVIDERS: ATTEND Nurse Practitioner Family
DX: N18.4 Chronic kidney disease, stage 4 (severe) (principal); N25.81 Secondary hyperparathyroidism of renal origin
CPT/HCPCS: 36415; 80048; 81003; 82040; 82306; 82570; 82728; 83540; 83550; 83735; 83970; 84100; 84156; 84550; 85025

== ENCOUNTER → 2021-08-24 | Outpatient (CLI) | payer MEDICARE ==
[2021-08-24 14:37] LABS: Basophils # (A) 0.1 k/uL (0-0.2); Basophils % (A) 2 %; Eosinophils # (A) 0.1 k/uL (0-0.7); Eosinophils % (A) 2 %; HCT 44.9 % (39.0-53.0); HGB 14.1 gm/dL (13.0-17.5); Lymphocytes # (A) 1.1 k/uL (1.0-4.8); Lymphocytes % (A) 23 %; MCH 27.4 pg (25.0-35.0); MCHC 31.5 g/dL (31.0-37.0); Mean Platelet Volume 11.2; Monocytes # (A) 0.6 k/uL (0-1.0); Monocytes % (A) 12 %; Neutrophils # (A) 2.9 k/uL (1.3-7.7); Neutrophils % (A) 59 %; Platelet Count 115 k/uL (150-450); RBC 5.16 m/uL (4.30-5.90); RDW 13.7 % (11.5-15.5); WBC 4.8 k/uL (3.8-10.6)
== END | disposition home or self-care (01) ==
LOC: LABWHC1 14:06
PROVIDERS: ATTEND Internal Medicine
DX: J11.1 Influenza due to unidentified influenza virus with other respiratory manifestations (principal)
CPT/HCPCS: 85025; 87502

== ENCOUNTER → 2021-09-08 | Outpatient (CLI) | payer MEDICARE ==
--- NOTE | 2021-09-08 18:56 | CA ---
Transthoracic Echo Report Name: Antione Arnold Age: 76 Gender: M : 1945 Exam Date: 09/08/2021 11:30 Exam Location: [facility] Ht (in): 69 Wt (lb): 190 Ordering Physician: Samantha Colin MD Attending/Referring Phys: Veronica Sanchez [facility] Public Affairs Specialist Jayne Kelly RDCS Procedure CPT: Indications: R01.1 cardiac murmur Cardiac Hx: Htn, Dm, Chol Technical Quality: Good Contrast 1: N/A Total Dose (mL): Contrast 2: Total Dose (mL): MEASUREMENTS (Male / Female) Normal Values 2D ECHO LV Diastolic Diameter PLAX 4.9 cm 4.2 - 5.9 / 3.9 - 5.3 cm LV Systolic Diameter PLAX 3.3 cm IVS Diastolic Thickness 1.2 cm 0.6 - 1.0 / 0.6 - 0.9 cm LVPW Diastolic Thickness 1.2 cm 0.6 - 1.0 / 0.6 - 0.9 cm LV Relative Wall Thickness 0.5 RV Internal Dim ED PLAX 2.8 cm LA Systolic Diameter LX 3.2 cm 3.0 - 4.0 / 2.7 - 3.8 cm LA Volume 46.1 cm??? 18 - 58 / 22 - 52 cm??? M-MODE Aortic Root Diameter MM 3.6 cm LA Systolic Diameter MM 4.6 cm LA Ao Ratio MM 1.3 MV E Point Septal Separation 0.9 cm AV Cusp Separation MM 1.6 cm DOPPLER MV Area PHT 3.0 cm??? Mitral E Point Velocity 66.8 cm/s Mitral A Point Velocity 102.9 cm/s Mitral E to A Ratio 0.6 MV Deceleration Time 254.7 ms MV E' Velocity 5.6 cm/s Mitral E to MV E' Ratio 12.0 TR Peak Velocity 216.2 cm/s TR Peak Gradient 18.7 mmHg Right Ventricular Systolic Press 23.7 mmHg FINDINGS Left Ventricle Normal Left ventricular size, wall thickness, systolic function with no obvious regional wall motion abnormalities. Normal Left ventricular diastolic filling pattern. Left ventricular ejection fraction is estimated at 55-60%. Right Ventricle Normal right ventricular size and function. Right Atrium Normal right atrial size. Left Atrium Normal left atrial size. Mitral Valve Mild mitral regurgitation. Aortic Valve Trileaflet aortic valve. Tricuspid Valve Mild tricuspid regurgitation. Pulmonic Valve Trace pulmonic regurgitation. Pericardium Normal pericardium. Aorta Normal size aortic root and proximal ascending aorta. CONCLUSIONS Preserved LV systolic function, LVH Previewed by: Dr. Kenneth Morris MD (Electronically Signed) Final Date: 08 Sep 2021 18:55
== END | disposition home or self-care (01) ==
LOC: RADECHMAIN 11:06
PROVIDERS: ATTEND Internal Medicine Nephrology
DX: R01.1 Cardiac murmur, unspecified (principal)
CPT/HCPCS: 93306

== ENCOUNTER → 2021-10-12 | Outpatient (CLI) | payer MEDICARE ==
[2021-10-12 11:30] LABS: ALT 25 U/L (10-49); AST 23 U/L (14-35); Albumin 4.3 g/dL (3.8-4.9); Albumin/Globulin Ratio 1.79 (1.60-3.17); Alkaline Phosphatase 79 U/L (41-126); BUN/Creat Ratio 14.32 Ratio (12.00-20.00); Blood Urea Nitrogen 31.5 mg/dL (9.0-27.0); Calcium 9.7 mg/dL (8.7-10.3); Carbon Dioxide 22.4 mmol/L (20.0-27.5); Chloride 104 mmol/L (96-109); Chol/HDL Ratio 4.88 Ratio; Globulin 2.4 g/dL (1.6-3.3); Glucose 147 mg/dL (70-110); LDL Cholesterol,Calculated 62.3 mg/dL (0.0-131.0); Non-African American GFR(CKD) 28.5 (60.0-200.0); Potassium 4.4 mmol/L (3.5-5.5); Sodium 140 mmol/L (135-145); Total Protein 6.7 g/dL (6.2-8.2)
== END | disposition home or self-care (01) ==
LOC: LABWHC1 07:04
PROVIDERS: ATTEND Internal Medicine Endocrinology, Diabetes & Metabolism
DX: E11.65 Type 2 diabetes mellitus with hyperglycemia (principal)
CPT/HCPCS: 36415; 80053; 80061; 83036; 84443

== ENCOUNTER → 2021-10-13 | Outpatient (CLI) | payer MEDICARE ==
--- NOTE | 2021-10-13 19:04 | US ---
EXAMINATION TYPE: US kidneys/renal and bladder DATE OF EXAM: 10/13/2021 COMPARISON: 04/09/2019 CLINICAL HISTORY: 76-year-old male N18.4 Chronic Kidney Disease Stage 4. CKD EXAM MEASUREMENTS: Right Kidney: 10.2 x 5.9 x 5.2 cm Left Kidney: 11.0 x 5.9 x 4.6 cm Post Void Residual Volume: 16 mL Both kidneys show some cortical thinning. Right Kidney: Appeared wnl Left Kidney: Cyst upper pole= 1.2 x 0.9 x 1.0 cm, unchanged from prior Bladder: Mildly thickened and trabeculated appearing bladder wall. Bilateral Jets seen: Yes Normal Post Void Residual: Yes IMPRESSION: 1. Renal cortical thinning compatible with chronic medical renal disease. 2. No hydronephrosis. 3. Mildly thickened and trabeculated appearing bladder wall, possible component of chronic bladder ou tlet obstruction. 4. Increased post void bladder volume of 16 mL still falls within acceptable limits.
== END | disposition home or self-care (01) ==
LOC: RADUSWWP 15:14
PROVIDERS: ATTEND Internal Medicine Nephrology
DX: N18.4 Chronic kidney disease, stage 4 (severe) (principal)
CPT/HCPCS: 76770